=== PATIENT | male | born 1955 | race Caucasian/White ===

== ENCOUNTER 2016-09-10 18:42 | Emergency (ER) | payer SELFPAY ==
[~2016-09-10] VITALS: Ht 185.4 cm; Wt 106.8 kg
[~2016-09-10 18:42] MED LIST: ASPI81TA40 PO; CLOP75TA14 PO; FRSM80T PO; FURO80TA PO; HYDR1TAB69 PO; ISOS30TA PO; MAGN400C PO; METO50TA PO; NITR0.4T SL; POTA20TA16 PO; PRI20 PO; SMV40T PO
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
[2016-09-10 18:56] VITALS: BP 119/72; PULSE 88; RESP 28; O2SAT 100
[2016-09-10 18:57] LABS: BASOPHILS % (AUTO) 0.3 % (0-3); EOSINOPHILS % (AUTO) 2.7 % (0-5); MONOCYTES % (AUTO) 12.7 % (4-12); Mean Corpuscular Hemoglobin 30.8 pg (27.0-35.0); Mean Corpuscular Volume 87.4 fL (81-100); NEUTROPHILS % (AUTO) 52.3 % (40-74); Platelet Count 315 bil/L (150-400)
[2016-09-10 19:23] LABS: TROPONIN T < 0.010 ug/L (0.0-0.011)
[2016-09-10 19:33] LABS: Magnesium 1.5 mg/dL (1.6-2.6)
--- NOTE | 2016-09-10 19:35 | DRSVH ---
PROCEDURE: X-RAY CHEST ONE VIEW, PORTABLE ([id number]) INDICATIONS: chest pain, post cardioversion TECHNIQUE: One view of the chest was acquired. COMPARISON: [facility], CR, XR CHEST 1VW (PORTABLE), 08/19/2015, 5:20. FINDINGS: Surgical changes and devices: Sternotomy wires, clinical research monitor leads, vascular clips in the abdomen probably cholecystectomy. Lungs and pleura: Poor depth of inspiration. No mediastinal air or pneumothorax. The larger size of p atient and poor depth of inspiration, the lungs are considered to be clear. Mediastinum: Mediastinal contours appear normal. Heart size is normal. Bones and chest wall: No suspicious bony lesions. Overlying soft tissues appear unremarkable. IMPRESSION: Acute disease not appreciated on this portable chest. Dictated by: Garrett Segovia M.D. on 09/10/2016 at 19:32 Approved by: Garrett Segovia M.D. on 09/10/2016 at 19:33
[2016-09-10] MEDS ORDERED: Magnesium Sulf 2 Gm/50mL Water 2 GM in IV Premix 1 EACH IV ONE (19:40)
[2016-09-10 21:09] VITALS: BP 115/73; PULSE 69; RESP 18; O2SAT 94
[2016-09-10 22:01] VITALS: BP 133/78; PULSE 62; RESP 22; O2SAT 94
== END 2016-09-10 21:55 | disposition home or self-care (01) ==
LOC: SED 18:42
DX: I47.1 Supraventricular tachycardia (principal); X50.0XXA Overexertion from strenuous movement or load, initial encounter; Y92.59 Other trade areas as the place of occurrence of the external cause; Y93.89 Activity, other specified; Y99.0 Civilian activity done for income or pay; I25.10 Atherosclerotic heart disease of native coronary artery without angina pectoris; I25.2 Old myocardial infarction; I10 Essential (primary) hypertension; E78.00 Pure hypercholesterolemia, unspecified; K21.9 Gastro-esophageal reflux disease without esophagitis; E66.9 Obesity, unspecified; E11.9 Type 2 diabetes mellitus without complications; Z98.890 Other specified postprocedural states; Z95.1 Presence of aortocoronary bypass graft; Z68.31 Body mass index [BMI] 31.0-31.9, adult; Z86.018 Personal history of other benign neoplasm; Z79.82 Long term (current) use of aspirin